=== PATIENT | male | born 1980 | race Caucasian/White ===

== ENCOUNTER 2017-01-28 09:25 | Emergency (ER) | payer OTHER ==
[2017-01-28] MEDS ORDERED: EPINEPHRINE 1 MG/ML 1 ML VIAL IM ONE ×5 (09:27→09:47)
[2017-01-28] MEDS ORDERED: diPHENhydraMINE IV* 50 MG/ML 1 ml VIAL (BENADRYL) IV ONE (09:31)
[2017-01-28] MEDS ORDERED: diPHENhydraMINE IV* 50 MG/ML 1 ml VIAL (BENADRYL) IM ONE (09:32)
[2017-01-28] MEDS ORDERED: methylPREDNISolone 125 MG* 2 ML VIAL IM ONE (09:34)
[2017-01-28] MEDS ORDERED: NS 0.9% 1000 ML* 1,000 ML IV ONE (09:37)
[2017-01-28] MEDS ORDERED: Albuterol/Ipratropium NEB.SOL* Albuterol 2.5 MG/Ipratropium 0.5 MG 3 ML ONE (09:51)
[2017-01-28] MEDS ORDERED: Albuterol/Ipratropium NEB.SOL* Albuterol 2.5 MG/Ipratropium 0.5 MG 3 ML INH ONE (09:55)
[2017-01-28 10:33] VITALS: BP 155/76
[2017-01-28] MEDS ORDERED: diPHENhydraMINE IV* 50 MG/ML 1 ml VIAL (BENADRYL) ONE (11:10)
[2017-01-28] MEDS ORDERED: EPINEPHRINE 1 MG/ML 1 ML VIAL ONE (11:11)
--- NOTE | 2017-02-08 18:11 | UC ---
Federico Shepherd Angela, scribed for Erin Hernandez DO on 01/28/17 at 0944 . Allergic Reaction HPI - HPI Summary HPI Summary: This pt is a 36 y/o male accompanied by his presenting to [facility] c/o allergic reaction that began approximately at 08:40 AM. 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 He states that his eyes and lips began to swell up. He additionally c/o SOB and difficulty breathing. Pt denies tongue swelling. He denies nausea, vomiting, abd pain, cramping, dizziness, light-headedness. 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 Per , pt has just started to take Metformin within the last couple of weeks. notes the pt has had a cold for 1 week now. Allergies includes amoxicillin, penicillin, bee. He denies allergies to peanuts or nuts. Pt notes he has had an allergic reaction before when he was stung by a bee in his eyeball. PMHx includes HTN, DM, asthma. 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 Negative: Abdominal Pain, Chest Pain, Lightheadedness, Nausea, Rash, Vomiting - Allergies/Home Medications Allergies/Adverse Reactions: Allergies Allergy/AdvReac Type Severity Reaction Status Date / Time Amoxicillin Allergy Anaphylatic Verified 01/28/17 09:58 Shock Bee Venom Allergy Shortness Verified 01/28/17 10:18 of Breath Penicillins Allergy Anaphylatic Verified 01/28/17 09:58 Shock CILLINS Allergy Anaphylatic Uncoded 01/28/17 09:58 Shock PMH/Surg Hx/FS Hx/Imm Hx Endocrine History: Diabetes Cardiovascular History: Hypertension Respiratory History: Asthma - Surgical History Surgical History: None - Family History Known Family History: Positive: Hypertension, Diabetes - Social History Occupation: Employed Full-time Lives: With Family Alcohol Use: Occasionally Substance Use Type: None Smoking Status (MU): Heavy Every Day Tobacco Smoker Amount Used/How Often: 1/2 ppd Have You Smoked in the Last Year: Yes Cessation Counseling: Patient Advised to Stop Review of Systems Constitutional: Negative Skin: Negative Eyes: Other - swelling around the eyes ENT: Other - POS: lip swelling. NEG: tongue swelling Respiratory: Shortness Of Breath Cardiovascular: Negative Gastrointestinal: Negative Genitourinary: Negative Motor: Negative Neurovascular: Negative Musculoskeletal: Negative Neurological: Negative Psychological: Negative All Other Systems Reviewed And Are Negative: Yes Physical Exam Triage Information Reviewed: Yes Appearance: No Pain Distress, Well-Nourished Vital Signs: Initial Vitals Temp Pulse Resp BP Pulse Ox 98.7 F 75 18 155/87 98 01/28/17 09:45 01/28/17 09:45 01/28/17 09:45 01/28/17 09:45 01/28/17 09:45 Vital Signs Reviewed: Yes Eyes: Positive: Conjunctiva Clear, Other: - periorbital swelling, more R> L. Negative: Discharge ENT: Positive: Hearing grossly normal, Other - facial edema. Negative: Muffled voice, Hoarse voice Neck exam: Normal Neck: Positive: Supple Respiratory: Positive: No respiratory distress, No accessory muscle use, Wheezing - scattered and tight Cardiovascular: Positive: RRR, No Murmur Abdomen Description: Positive: Nontender, Soft Bowel Sounds: Positive: Present Musculoskeletal Exam: Normal Neurological: Positive: Alert, Muscle Tone Normal Psychological Exam: Normal Psychological: Positive: Age Appropriate Behavior Skin Exam: Other - warm, dry Skin: Positive: Other - impressive swelling of bl face. diffuse urticaria Re-Evaluation - Re-Evaluation First Eval Re-Evaluation Time: 09:42 Comment: Pt notes his breathing is better. Wheezes are still scattered, more audible, and more diffuse. He denies nausea, dizziness, light-headedness. Second Eval Re-Evaluation Time: 09:51 Comment: Pt reports his breathing is the same. He denies any new symptoms or chest pain. Allergic Reaction Course/Dx - Course Course Of Treatment: Medications reviewed this visit. Upon arrival, pt was put on 4L of O2 NC. Pt was given 3 rounds of Epi, 2 rounds of benadryl and 125 mg of solu-medrol. Pt had an IV started on his left hand. Initially, the pt had tight wheezes. After medications pt still had wheezes that were more audible, less tight, and more diffuse. Ambulance was called and pt was transferred to [facility] at 09:56. - Differential Dx/Diagnosis Provider Diagnoses: severe Allergic reaction Discharge - Discharge Plan Condition: Good Disposition: TRANS HIGHER LVL OF CARE FAC Discharge Disposition Comment: [facility] Referrals: Ángel Wheeler MD [Primary Care Provider] - The documentation as recorded by the Federico hickman Angela accurately reflects the service I personally performed and the decisions made by me, Erin Hernandez DO.
== END 2017-01-28 09:56 | disposition short-term general hospital (02) ==
LOC: UCEAST 09:25
DX: T78.40XA Allergy, unspecified, initial encounter (principal); R06.02 Shortness of breath; R22.0 Localized swelling, mass and lump, head; X58.XXXA Exposure to other specified factors, initial encounter; E11.9 Type 2 diabetes mellitus without complications; Z79.84 Long term (current) use of oral hypoglycemic drugs; I10 Essential (primary) hypertension; J45.909 Unspecified asthma, uncomplicated; Z88.0 Allergy status to penicillin; Z91.030 Bee allergy status; F17.210 Nicotine dependence, cigarettes, uncomplicated
CPT/HCPCS: 96360; 96376; 99214; A9270-GY; G0463; J1200; J2930

== ENCOUNTER 2017-01-28 10:13 | Emergency (ER) | payer OTHER ==
[2017-01-28] MEDS ORDERED: Albuterol 2.5 MG/3 ML NEB.SOL* (0.083%) INH ONE (10:17)
[2017-01-28] MEDS ORDERED: Famotidine IV* 10 MG/ML 2 ML (20 mg) IV ONE (10:31)
[2017-01-28] MEDS ORDERED: Albuterol 2.5 MG/3 ML NEB.SOL* (0.083%) ONE (10:33)
[2017-01-28] MEDS ORDERED: Famotidine IV* 10 MG/ML 2 ML (20 mg) ONE (11:20)
--- NOTE | 2017-01-28 13:19 | ED ---
Franko Shepherd Benjamin, scribed for Pravin Khanna MD on 01/28/17 at 1045 . Allergic Reaction/Systemic - HPI Summary HPI Summary: 36yo male BIBA from after having an allergic reaction at home this morning. Pt reports taking metformin and eating banana shortly before his allergic reaction started. Pt had redness and swelling in face, throat tightening, but was given 3 units of epi IM, 125mg solumedrol IV, and 50mg PO, 50mg IV Benadryl at . Pt states feeling better after receiving treatment at . Denies any throat tightening now. No swelling in legs. Pt is allergic to bees, but no prior allergic reactions to banana. No recent new chemical exposure. - History of Current Complaint Time Seen by Provider: 01/28/17 10:17 Hx Obtained From: Patient Onset/Duration: Sudden Onset, Started hours ago, Still Present Timing: Constant Severity Initially: Moderate Severity Currently: Mild Pain Intensity: 0 Pain Scale Used: 0-10 Numeric Location: Diffuse Character: Swelling - face Associated Signs And Symptoms: Positive: Diaphoresis, Difficulty Breathing, Throat Tightening - Related Hx Possible Reaction To: Medications - possibly metformin - Allergies/Home Medications Allergies/Adverse Reactions: Allergies Allergy/AdvReac Type Severity Reaction Status Date / Time Amoxicillin Allergy Anaphylatic Verified 01/28/17 09:58 Shock Bee Venom Allergy Shortness Verified 01/28/17 10:18 of Breath Penicillins Allergy Anaphylatic Verified 01/28/17 09:58 Shock CILLINS Allergy Anaphylatic Uncoded 01/28/17 09:58 Shock PMH/Surg Hx/FS Hx/Imm Hx Endocrine/Hematology History: Reports: Hx Diabetes Cardiovascular History: Reports: Hx Hypertension Respiratory History: Reports: Hx Asthma Denies: Hx Chronic Obstructive Pulmonary Disease (COPD) - Cancer History Cancer Type, Location and Year: denies Infectious Disease History: No Infectious Disease History: Denies: History Other Infectious Disease, Traveled Outside the [place] in Last 30 Days - Family History Known Family History: Negative: Renal Disease, Blood Disorder - Social History Occupation: Employed Full-time Alcohol Use: Occasionally Substance Use Type: Reports: None Smoking Status (MU): Former Smoker Amount Used/How Often: 1/2 ppd Have You Smoked in the Last Year: Yes Review of Systems Positive: Skin Diaphoresis Eyes: Negative ENT: Negative Cardiovascular: Negative Respiratory: Negative Gastrointestinal: Negative Genitourinary: Negative Musculoskeletal: Negative Positive: Other - redness and swelling in face Neurological: Negative Psychological: Normal All Other Systems Reviewed And Are Negative: Yes Physical Exam Triage Information Reviewed: Yes Vital Signs On Initial Exam: Initial Vitals Temp Pulse Resp BP Pulse Ox 98 F 73 22 148/76 96 01/28/17 10:17 01/28/17 10:17 01/28/17 10:17 01/28/17 10:17 01/28/17 10:17 Vital Signs Reviewed: Yes Appearance: Positive: Well-Appearing, No Pain Distress, Obese Skin: Positive: Warm, Skin Color Reflects Adequate Perfusion Head/Face: Positive: Other - Face and eyelid swollen Eyes: Positive: EOMI, JAYLYN ENT: Positive: Normal ENT inspection, Pharynx normal - posterior pharynx is open,. Negative: Hoarse voice - normal voice. Neck: Positive: Supple, Nontender Respiratory/Lung Sounds: Positive: Wheezes - Expiratory wheezing Cardiovascular: Positive: RRR Abdomen Description: Positive: Nontender, Soft Bowel Sounds: Positive: Present Musculoskeletal: Positive: Strength/ROM Intact Neurological: Positive: Sensory/Motor Intact, Alert, Oriented to Person Place, Time Psychiatric: Positive: Affect/Mood Appropriate - Salomon Coma Scale Coma Scale Total: 15 Diagnostics - Vital Signs Vital Signs Temp Pulse Resp BP Pulse Ox 01/28/17 10:25 72 18 96 01/28/17 10:23 148/76 01/28/17 10:17 98 F 73 22 148/76 96 - Laboratory Lab Statement: Any lab studies that have been ordered have been reviewed, and results considered in the medical decision making process. - EKG 1130. EKG Rhythm: Sinus Rhythm - 68bpm EKG Interpretation: early repolarization, no ectopy Re-Evaluation - Re-Evaluation First Eval Re-Evaluation Time: 10:50 Comment: Pt is on his breathing treatment. States feeling "okay" now. Allergic Reaction Course/Dx - Course Course Of Treatment: BP noted and advised to follow up with PCP. Allergies noted. Medications reviewed. DISCUSSED WITH PATIENT; MOST PROBABLE CAUSE OF ALLERGIC REACTION IS THE METFORMIN. BANANA IS ANOTHER POSSIBLITY. RX PEPCID/ PREDNISONE/EPIPEN. IMPROVED IN ED. F/U PMD; RETURN IF WORSE. NO CRITICAL CARE TIME IN THE ED. - Diagnoses Provider Diagnoses: Allergic reaction Discharge - Discharge Plan Condition: Stable Disposition: HOME Prescriptions: Epinephrine [Epipen 2-Bk] 0.3 mg IM ONCE PRN #1 inj PRN Reason: Allergy Symptoms Famotidine TAB* [Pepcid 20 MG TAB*] 20 mg PO BID PRN #8 tab PRN Reason: Allergy Symptoms predniSONE TAB* [Deltasone TAB*] 40 mg PO DAILY PRN #8 tab PRN Reason: Allergy Symptoms Patient Education Materials: General Allergic Reaction (ED) Referrals: Ángel Wheeler MD [Primary Care Provider] - Additional Instructions: STOP THE METFORMIN. CONSIDER YOURSELF ALLERGIC TO METFORMIN. FOLLOW UP WITH YOUR DOCTOR. TAKE BENADRYL 50MG EVERY 6 HOURS NEEDED. TAKE PEPCID 20MG TWICE A DAY NEEDED. TAKE THE PREDNISONE DIRECTED NEEDED. RETURN TO THE EMERGENCY DEPARTMENT FOR ANY WORSENING OF YOUR CONDITION; DIFFICULTY BREATHING OR SWALLOWING OR QUESTIONS OR CONCERNS. The documentation as recorded by the Franko hickman Benjamin accurately reflects the service I personally performed and the decisions made by , Pravin Khanna MD.
[2017-01-28 13:21] VITALS: BP 149/73
== END 2017-01-28 13:39 | disposition home or self-care (01) ==
LOC: ED 10:13
DX: T78.40XA Allergy, unspecified, initial encounter (principal); X58.XXXA Exposure to other specified factors, initial encounter; Z87.891 Personal history of nicotine dependence
CPT/HCPCS: 93005; 94640; 96374; 99283

== ENCOUNTER 2017-02-16 07:04 | Emergency (ER) | payer OTHER ==
[2017-02-16 07:22] VITALS: BP 142/79
--- NOTE | 2017-02-16 07:50 | UC ---
Respiratory Complaint HPI - HPI Summary HPI Summary: 5 DAYS OF COUGH, CONGESTION AND FEELING WHEEZY. HAS CHILLS, HOT FLASHES AND FEELS ACHY. HAD URI SYMPTOMS FOR WEEKS THAT HE THOUGHT WERE IMPROVING UNTIL ABOUT 5 DAYS AGO. ALBUTEROL IS HELPING BUT ONLY TRANSIENTLY. YESTERDAY DEVELOPED NOSE BLEED LEFT NARE AFTER COUGHING HARD. STOPPED EASILY WITH PRESSURE. - History of Current Complaint Chief Complaint: UCRespiratory Stated Complaint: COUGH, BLOODY NOSE Time Seen by Provider: 02/16/17 07:19 Hx Obtained From: Patient Onset/Duration: Gradual Onset, Lasting Days, Still Present Timing: Constant Severity Initially: Moderate Severity Currently: Moderate Pain Intensity: 5 Pain Scale Used: 0-10 Numeric Character: Cough: Nonproductive Aggravating Factors: Nothing Alleviating Factors: Bronchodilator Associated Signs And Symptoms: Positive: Wheezing, URI, Nasal Congestion. Negative: Dyspnea - Allergies/Home Medications Allergies/Adverse Reactions: Allergies Allergy/AdvReac Type Severity Reaction Status Date / Time Metformin Allergy Severe Anaphylatic Verified 02/16/17 07:23 Shock Amoxicillin Allergy Anaphylatic Verified 02/16/17 07:23 Shock Bee Venom Allergy Shortness Verified 02/16/17 07:23 of Breath Penicillins Allergy Anaphylatic Verified 02/16/17 07:23 Shock CILLINS Allergy Anaphylatic Uncoded 01/28/17 09:58 Shock Home Medications: Home Medications Ibuprofen TAB* [Motrin TAB* 400 MG] 400 mg PO Q6H PRN 02/16/17 [History Confirmed 02/16/17] PMH/Surg Hx/FS Hx/Imm Hx Endocrine History: Diabetes Cardiovascular History: Hypertension Respiratory History: Asthma - Surgical History Surgical History: None - Family History Known Family History: Positive: Hypertension Negative: Renal Disease, Blood Disorder - Social History Alcohol Use: Occasionally Substance Use Type: None Smoking Status (MU): Former Smoker Type: Cigarettes Amount Used/How Often: 1 ppd Length of Time of Smoking/Using Tobacco: 20 yrs Have You Smoked in the Last Year: Yes When Did the Patient Quit Smoking/Using Tobacco: 2016 - Immunization History Most Recent Influenza Vaccination: no Review of Systems Constitutional: Negative Skin: Other - SWEATY ENT: Sore Throat, Nasal Discharge Respiratory: Shortness Of Breath, Cough Cardiovascular: Negative Gastrointestinal: Negative All Other Systems Reviewed And Are Negative: Yes Physical Exam Triage Information Reviewed: Yes Appearance: Well-Appearing, No Pain Distress, Well-Nourished Vital Signs: Initial Vital Signs Temp 97.3 F 02/16/17 07:17 Pulse 84 02/16/17 07:17 Resp 20 02/16/17 07:17 BP 142/79 02/16/17 07:17 Pulse Ox 95 02/16/17 07:17 Vital Signs Reviewed: Yes Eyes: Positive: Conjunctiva Clear ENT: Positive: Hearing grossly normal, Pharynx normal, TMs normal Neck: Positive: Supple, Nontender, No Lymphadenopathy Respiratory: Positive: No respiratory distress, No accessory muscle use, Decreased breath sounds. Negative: Wheezing Cardiovascular Exam: Normal Abdomen Description: Positive: Soft Musculoskeletal: Positive: No Edema Neurological: Positive: Alert Psychological: Positive: Age Appropriate Behavior Skin: Positive: Other - DIAPHORETIC. Negative: rashes UC Diagnostic Evaluation - Laboratory O2 Sat by Pulse Oximetry: 95 Respiratory Course/Dx - Differential Dx/Diagnosis Provider Diagnoses: 1. ACUTE URI. 2. ACUTE ASTHMA Discharge - Discharge Plan Condition: Stable Disposition: HOME Prescriptions: Azithromycin [Azithromycin 500 MG TAB] 500 mg PO DAILY #5 tab Guaifenesin-Codeine [Codeine/Guaifenesin 100-10 mg/5Ml] 5 - 10 ml PO Q6H PRN # 150 ml MDD 40ML PRN Reason: Cough predniSONE TAB* [Deltasone TAB*] 50 mg PO DAILY #5 tab Patient Education Materials: Asthma (ED), Upper Respiratory Infection (ED) Forms: *Work Release Referrals: Ángel Wheeler MD [Medical Doctor] - If Needed Additional Instructions: YOUR SYMPTOMS MAY BE VIRALLY MEDIATED BUT GIVEN THE LENGTH OF TIME YOU HAVE BEEN ILL WE WILL COVER YOU WITH ANTIBIOTICS. IF YOU START THE MEDICINE BE SURE TO TAKE IT FOR THE FULL COURSE. REST, HYDRATE, OTC MEDS NEEDED. WILL ALSO TREAT WITH PREDNISONE TO HELP WITH AIRWAY INFLAMMATION AND COUGH MEDICINE. SEEK FOLLOW-UP WITH YOUR PCP IF YOU ARE NOT IMPROVING OVER THE NEXT 1-2 WEEKS.
== END 2017-02-16 07:56 | disposition home or self-care (01) ==
LOC: UCEAST 07:04
DX: J06.9 Acute upper respiratory infection, unspecified (principal); J45.909 Unspecified asthma, uncomplicated
CPT/HCPCS: 99212; G0463

== ENCOUNTER 2017-03-07 12:29 | Emergency (ER) | payer OTHER ==
[2017-03-07 13:05] VITALS: BP 157/91
--- NOTE | 2017-03-07 13:20 | UC ---
Respiratory Complaint HPI - HPI Summary HPI Summary: Cough and congestion for several weeks. Prednisone and z pack did not help when he was here last. He now c/o of sever right lateral rib pain worsened with cough , deep breaths, or palpation. He had similar symptoms in the past on the left. He has asthma and is only on proair not an inhaled steroid. He denies recent fever. He has sob at times when the pain is worse. No calf pain or swelling. - History of Current Complaint Chief Complaint: UCChestPain Stated Complaint: RIGHT RIB PAIN, COUGH Time Seen by Provider: 03/07/17 13:06 Hx Obtained From: Patient Onset/Duration: Gradual Onset, Lasting Days Timing: Constant Severity Initially: Moderate Severity Currently: Moderate Character: Cough: Nonproductive Aggravating Factors: Deep Breaths, Recumbent Position Alleviating Factors: Nothing Associated Signs And Symptoms: Positive: Pleuritic Chest Pain, URI, Nasal Congestion. Negative: Fever, Chills, Wheezing, Hemoptysis, Dizziness, Calf Pain , Calf Swelling - Allergies/Home Medications Allergies/Adverse Reactions: Allergies Allergy/AdvReac Type Severity Reaction Status Date / Time Metformin Allergy Severe Anaphylatic Verified 03/07/17 12:57 Shock Amoxicillin Allergy Anaphylatic Verified 03/07/17 12:57 Shock Bee Venom Allergy Shortness Verified 03/07/17 12:57 of Breath Penicillins Allergy Anaphylatic Verified 03/07/17 12:57 Shock CILLINS Allergy Anaphylatic Uncoded 03/07/17 12:57 Shock Home Medications: Home Medications Albuterol HFA INHALER* [Ventolin HFA Inhaler*] 1 - 2 puff INH Q4H PRN 03/07/17 [ History Confirmed 03/07/17] Canagliflozin (NF) [Invokana (NF)] 100 mg PO DAILY 03/07/17 [History Confirmed 03/07/17] Epinephrine [Epipen 2-Bk] 0.3 mg IM SEE INSTRUCTIONS PRN 03/07/17 [History Confirmed 03/07/17] Ibuprofen TAB* [Advil TAB*] 800 mg PO Q8H PRN 03/07/17 [History Confirmed ] Propranolol LA CAP* [Inderal LA CAP*] 120 mg PO DAILY 03/07/17 [History Confirmed 03/07/17] SUMAtriptan TAB* [Imitrex TAB*] 100 mg PO SEE INSTRUCTIONS PRN 03/07/17 [ History Confirmed 03/07/17] PMH/Surg Hx/FS Hx/Imm Hx Previously Healthy: No - asthma. - Surgical History Surgical History: None - Family History Known Family History: Positive: Hypertension Negative: Renal Disease, Blood Disorder - Social History Lives: With Family Alcohol Use: None Substance Use Type: None Smoking Status (MU): Former Smoker Type: Cigarettes Amount Used/How Often: 1 ppd Length of Time of Smoking/Using Tobacco: 1 PPD x 17 Years Have You Smoked in the Last Year: Yes When Did the Patient Quit Smoking/Using Tobacco: 2015 - Immunization History Most Recent Influenza Vaccination: Not the Season Review of Systems Respiratory: Cough Cardiovascular: Chest Pain All Other Systems Reviewed And Are Negative: Yes Physical Exam Triage Information Reviewed: Yes Appearance: Well-Appearing, No Pain Distress, Obese, Other: - Non toxic and still jovial but he has obvios pain with deep breaths. Vital Signs: Initial Vital Signs Temp 99 F 03/07/17 12:55 Pulse 84 03/07/17 12:55 Resp 20 03/07/17 12:55 BP 157/91 03/07/17 12:55 Pulse Ox 98 03/07/17 12:55 Vital Signs Reviewed: Yes Eyes: Positive: Conjunctiva Clear ENT: Positive: Normal ENT inspection, Pharynx normal, TMs normal. Negative: Pharyngeal erythema, Nasal drainage, Tonsillar swelling, Tonsillar exudate, Trismus, Sinus tenderness, Uvula midline Neck: Positive: Supple, Nontender, No Lymphadenopathy Respiratory: Positive: Lungs clear, Normal breath sounds, No respiratory distress, No accessory muscle use. Negative: Respiratory distress, Decreased breath sounds, Accessory muscle use, Crackles, Rhonchi, Stridor, Wheezing Cardiovascular: Positive: No Murmur, Pulses Normal, Brisk Capillary Refill Abdomen Description: Positive: No Organomegaly, Soft. Negative: Distended, Guarding Musculoskeletal: Positive: Strength Intact, ROM Intact, No Edema Neurological: Positive: Alert, Muscle Tone Normal. Negative: Fatigued Psychological: Positive: Normal Response To Family, Age Appropriate Behavior Skin: Negative: rashes UC Diagnostic Evaluation - Laboratory O2 Sat by Pulse Oximetry: 98 Respiratory Course/Dx - Course Course Of Treatment: x ray does not show pneumonia, pneumothorax, rib fracture. This is most c/w rib strain due to coughing or pleurisy due to viral illness. He does not have signs of DVT or tachycardia or sob at rest to suggest PE. We will aggressively manage with tylenol #3, prednisone and nsaids. - Differential Dx/Diagnosis Provider Diagnoses: pleurisy. right chest pain. Discharge - Discharge Plan Condition: Good Disposition: HOME Prescriptions: Acetaminop/Codeine 30 MG TAB* [Tylenol/Codeine 30 MG TAB*] 1 tab PO BEDTIME PRN #20 tab MDD 1 PRN Reason: Pain Naproxen [Naproxen 500 mg] 500 mg PO BID #20 tab predniSONE TAB* [Deltasone TAB*] 20 mg PO DAILY #15 tab Referrals: No Primary Care Phys,NOPCP [Primary Care Provider] -
--- NOTE | 2017-03-07 13:33 | RAD ---
INDICATION: Cough, right chest pain. COMPARISON: There are no prior studies available for comparison. TECHNIQUE: 3 views of the right ribs and dual-energy PA views of the chest were obtained. FINDINGS: No fracture or significant focal osseous abnormality is seen. The heart is within normal limits in size. The lungs are underinflated and clear. There is no evidence for pneumothorax or pleural effusion. IMPRESSION: NO EVIDENCE FOR FRACTURE.
== END 2017-03-07 13:59 | disposition home or self-care (01) ==
LOC: UCCORT 12:29
DX: R09.1 Pleurisy (principal); R07.9 Chest pain, unspecified; Z87.891 Personal history of nicotine dependence
CPT/HCPCS: 99212; G0463

== ENCOUNTER 2020-02-26 07:30 | Inpatient (IN) ==
[~2020-02-26 07:30] MED LIST: Buffered Lidocaine 1% SYRIN 1 ml INTRADERM ONE; Famotidine IV 10 MG/ML 2 ml VIAL (20 mg) IV ONE; Lactated Ringers 1000 ml BAG 1,000 ML IV SCH
[2020-03-07] MEDS ORDERED: Levalbuterol 0.63MG/3ML NEB UNIT OF USE INH ONE ×2 (06:00→07:02)
[2020-03-07] MEDS ORDERED: Buffered Lidocaine 1% SYRIN 1 ml INTRADERM ONE ×2 (06:00→07:02)
[2020-03-07] MEDS ORDERED: Famotidine IV 10 MG/ML 2 ml VIAL (20 mg) IV ONE (06:00)
[2020-03-07] MEDS ORDERED: Lactated Ringers 1000 ml BAG 1,000 ML IV SCH (06:00)
[2020-03-07] MEDS ORDERED: Heparin 5000 UNITS/ML 1 mL VIAL ONE (07:02)
[2020-03-07] MEDS ORDERED: Famotidine IV 10 MG/ML 2 ml VIAL (20 mg) ONE (07:02)
[2020-03-07] MEDS ORDERED: Clindamycin 900 MG/D5W BAG 900 MG/50 ML BAG IVPB ONE (07:02)
[2020-03-07] MEDS ORDERED: Methylene Blue 0.5 % 50 MG/10 ML AMP IV ONE (07:04)
[2020-03-07] MEDS ORDERED: Bupivacaine 0.25% SDV 30 ML ONE (07:04)
[2020-03-07] MEDS ORDERED: Midazolam 5 mg/5 ml VIAL 1 mg/ml 5 ml VIAL (5 mg) ONE (07:14)
[2020-03-07] MEDS ORDERED: Propofol 10 MG/ML 20 ML BTL ONE ×2 (07:14→10:34)
[2020-03-07] MEDS ORDERED: Rocuronium 50 mg VIAL 10 mg/ml 5 ml VIAL (50 mg) ONE ×2 (07:14→07:16)
[2020-03-07] MEDS ORDERED: Ketamine HCL 50 mg/ml 10 ml VIAL (500 MG) ONE (07:14)
[2020-03-07] MEDS ORDERED: Ondansetron 4 mg VIAL 2 MG/ML 2 ml VIAL ONE (07:14)
[2020-03-07] MEDS ORDERED: fentaNYL 250 mcg/5 ml 50 MCG/ML 5 ml VIAL (250 MCG) ONE (07:14)
[2020-03-07] MEDS ORDERED: Lidocaine 2% PF 5 ML VIAL ONE (07:14)
[2020-03-07] MEDS ORDERED: Dexamethasone IV 4 MG/ML VIAL 1 ml VIAL ONE (07:14)
[2020-03-07] MEDS ORDERED: fentaNYL 100 mcg/2 ml 50 MCG/ML VIAL ONE ×2 (08:45→11:14)
[2020-03-07] MEDS ORDERED: Ondansetron 4 mg VIAL 2 MG/ML 2 ml VIAL IV PRN ×2 (08:59→10:53)
[2020-03-07] MEDS ORDERED: Levalbuterol 0.63MG/3ML NEB UNIT OF USE INH PRN (08:59)
[2020-03-07] MEDS ORDERED: Naloxone 0.4 mg VIAL 0.4 mg/ml 1 ml VIAL IV PRN (08:59)
[2020-03-07] MEDS ORDERED: fentaNYL 100 mcg/2 ml 50 MCG/ML VIAL IV PRN (08:59)
[2020-03-07] MEDS ORDERED: HYDROmorphone 1 MG/1 ML SYRINGE IV PRN (08:59)
[2020-03-07] MEDS ORDERED: Metoclopramide 5 MG/ML VIAL (10 mg) IV PRN (08:59)
[2020-03-07] MEDS ORDERED: HYDROmorphone 1 MG/1 ML SYRINGE ONE ×2 (09:20→10:32)
[2020-03-07] MEDS ORDERED: Acetaminophen IV 1 GM/100ML 100 ML ONE (09:32)
[2020-03-07] MEDS ORDERED: Sugammadex 500 MG/5 ML 5 ml VIAL IV PUSH ONE (10:33)
[2020-03-07] MEDS ORDERED: HYDROcodone/ACET. 7.5/325 LIQ 15 ML UDC PO PRN (10:53)
[2020-03-07] MEDS ORDERED: diPHENhydraMINE IV 50 MG/ML 1 ml VIAL (BENADRYL) SLOW PUSH PRN (10:53)
[2020-03-07] MEDS ORDERED: HYDROmorphone 0.5 MG/0.5 ML SYRINGE IV SLOW PU PRN (10:53)
[2020-03-07] MEDS ORDERED: Albuterol HFA INHALER 8 gm MDI INH PRN (12:02)
[2020-03-07] MEDS: Lactated Ringers 1000 ml BAG 1,000 ML IV SCH ×2 (12:27→19:12)
[2020-03-07] MEDS: Heparin 5000 UNITS/ML 1 mL VIAL SUBCUT SCH ×2 (14:46→22:07)
[2020-03-07] MEDS: HYDROmorphone 1 MG/1 ML SYRINGE IV SLOW PU PRN (17:37)
[2020-03-07] MEDS: Famotidine IV 10 MG/ML 2 ml VIAL (20 mg) IV SLOW PU SCH (20:43)
[2020-03-08] MEDS: Lactated Ringers 1000 ml BAG 1,000 ML IV SCH ×2 (01:50→09:15)
[2020-03-08] MEDS: Heparin 5000 UNITS/ML 1 mL VIAL SUBCUT SCH ×2 (05:37→14:27)
[2020-03-08] MEDS: HYDROmorphone 1 MG/1 ML SYRINGE IV SLOW PU PRN (05:43)
[2020-03-08] MEDS: Famotidine IV 10 MG/ML 2 ml VIAL (20 mg) IV SLOW PU SCH (07:29)
[2020-03-08] MEDS ORDERED: D5W 1/2 NS KCl 20 meq 1000 ml 1,000 ML IV SCH (11:00)
[2020-03-08 11:49] VITALS: BP 117/75
[2020-03-10] MEDS ORDERED: Scopolamine PATCH Remove NOTE PATCH OFF ONE (06:00)
== END 2020-03-08 16:00 | disposition home or self-care (01) ==
LOC: AA 03-07 05:53 → SSU 03-07 10:53
PROVIDERS: ADMIT Surgery; ATTEND Surgery